=== PATIENT | female | born 1980 | race Caucasian/White ===

== ENCOUNTER 2016-04-17 10:30 | Outpatient (RCR) | payer OTHER ==
[2016-02-26 15:40] VITALS: BP 152/93
[~2016-04-17 10:30] MED LIST: ANTIVERT12.5 M1; COPAXONE 20M20 MG/M1 SQ; CYMBALTA60 M1 PO; DULOXETINE60 MG PO; GABAPENTIN100 MG PO; GILENYA0.5 MG PO; NEURONTIN300 M1 PO; PREDNISONE20 M1 PO; VITAMIN D50000 UNIT PO; ZOFRAN4 M2 PO
== END 2016-05-28 08:00 | disposition home or self-care (01) ==
LOC: OT 10:30
DX: G35 Multiple sclerosis (principal)

== ENCOUNTER 2016-04-28 15:30 | Outpatient (RCR) | payer OTHER ==
[2016-02-26 15:40] VITALS: BP 152/93
== END 2016-06-05 | disposition home or self-care (01) ==
LOC: PT
DX: R27.0 Ataxia, unspecified (principal); R53.1 Weakness; G35 Multiple sclerosis

== ENCOUNTER 2016-08-23 09:33 | Outpatient (RCR) | payer OTHER, MEDICARE ==
[~2016-08-23] VITALS: Ht 157.5 cm; Wt 96.1 kg
[2016-08-23 10:13] VITALS: BP 152/93
[2016-08-23] MEDS ORDERED: NATURE'S BLEN2000 IU PO (11:13)
[2016-08-23] MEDS ORDERED: EFFEXOR XR150 M1 PO (11:14)
[2016-08-23] MEDS ORDERED: SYNTHROID0.075 MG PO (11:14)
[2016-08-23] MEDS ORDERED: TOPAMAX25 MG PO (11:14)
[2016-08-23] MEDS ORDERED: ADDERALL 10 MG10 MG PO (11:15)
[2016-08-24 13:00] VITALS: BP 128/68
[2016-08-24 15:00] VITALS: BP 111/43
[2016-08-25 15:55] VITALS: BP 123/66
[2016-08-25 18:40] VITALS: BP 139/84
[2016-08-26 16:05] VITALS: BP 128/78
[2016-08-26 18:30] VITALS: BP 140/67
[2016-08-27 16:30] VITALS: BP 143/58
[2016-08-27 18:43] VITALS: BP 129/72
== END 2016-11-21 | disposition home or self-care (01) ==
LOC: AMSURD → EDSTATUS 09:50
DX: G35 Multiple sclerosis (principal)
CPT/HCPCS: J2930; J7050

== ENCOUNTER 2016-12-03 16:47 | Outpatient (RCR) | payer OTHER, MEDICARE ==
[~2016-12-03] VITALS: Ht 157.5 cm; Wt 89.5 kg
[~2016-12-03 16:47] MED LIST changes: +ADDERALL 10 MG10 MG PO; +EFFEXOR XR150 M1 PO; +NATURE'S BLEN2000 IU PO; +SYNTHROID0.075 MG PO; +TOPAMAX25 MG PO
[2016-12-03 17:00] VITALS: BP 125/69
[2016-12-03] MEDS ORDERED: MIXED AMPHETAMI10 M1 PO (17:39)
[2016-12-03] MEDS ORDERED: LEVOTHYROXIN0.075 MG PO (17:40)
[2016-12-03] MEDS ORDERED: ZOLPIDEM TART5 MG PO (17:42)
[2016-12-03] MEDS ORDERED: SINGULAIR 110 MG/TAB PO (17:43)
[2016-12-03] MEDS ORDERED: ALPRAZOLAM0.25 MG PO (17:43)
[2016-12-03] MEDS ORDERED: CYANOCOBAL1000 MCG/1 IM (17:44)
[2016-12-03] MEDS ORDERED: OCREVUS300 MG/10 IV (17:45)
[2016-12-03 19:20] VITALS: BP 124/72
[2016-12-03 19:55] VITALS: BP 124/77
[2016-12-04 16:44] VITALS: BP 112/82
[2016-12-04 19:04] VITALS: BP 135/80
[2016-12-05 17:20] VITALS: BP 140/72
[2016-12-05 19:38] VITALS: BP 138/83
== END 2016-12-05 19:00 | disposition home or self-care (01) ==
LOC: AMSURD 16:47
DX: G35 Multiple sclerosis (principal)
CPT/HCPCS: J1644; J2930; J7050

== ENCOUNTER 2017-01-27 18:09 | Outpatient (RCR) | payer OTHER, MEDICARE ==
[~2017-01-27] VITALS: Ht 157.5 cm; Wt 89.5 kg
[~2017-01-27 18:09] MED LIST changes: +ALPRAZOLAM0.25 MG PO; +CYANOCOBAL1000 MCG/1 IM; +LEVOTHYROXIN0.075 MG PO; +MIXED AMPHETAMI10 M1 PO; +OCREVUS300 MG/10 IV; +SINGULAIR 110 MG/TAB PO; +ZOLPIDEM TART5 MG PO
[2017-01-27 18:46] VITALS: BP 120/72
== END 2017-04-27 | disposition home or self-care (01) ==
LOC: AMSURD
DX: G35 Multiple sclerosis (principal); Z78.9 Other specified health status
CPT/HCPCS: A4301; J1644

== ENCOUNTER 2017-03-11 18:27 | Outpatient (RCR) | payer OTHER, MEDICARE ==
[~2017-03-11] VITALS: Ht 157.5 cm; Wt 89.5 kg
[2017-03-11 18:50] VITALS: BP 123/75
[2017-03-11 20:20] VITALS: BP 125/70
[2017-03-12 18:03] VITALS: BP 131/77
[2017-03-12 19:19] VITALS: BP 125/73
[2017-03-13 18:32] VITALS: BP 121/79
[2017-03-13 20:52] VITALS: BP 133/78
[2017-03-14 18:27] VITALS: BP 135/74
[2017-03-14 19:46] VITALS: BP 137/83
--- NOTE | 2017-03-14 19:50 | NUR ---
central line dressing change completed after it was noted there was clear fluid under the dressing, patient stated she had applied extra tape becasue the current dressing had lifted from her skin, sterile dressing change is completed
[2017-03-15 17:30] VITALS: BP 124/63
[2017-03-15 18:44] VITALS: BP 130/70
== END 2017-03-15 18:00 | disposition home or self-care (01) ==
LOC: AMSURD 18:27
DX: G35 Multiple sclerosis (principal)
CPT/HCPCS: A4301; J1644; J2930; J7050

== ENCOUNTER 2017-03-31 07:59 | Outpatient (RCR) | payer OTHER, MEDICARE ==
[~2017-03-31] VITALS: Ht 157.5 cm; Wt 89.5 kg
[2017-03-31 08:00] VITALS: BP 133/83
[2017-03-31 09:45] VITALS: BP 126/76
--- NOTE | 2017-03-31 10:07 | NUR ---
PORT REMAINS ACCESSED UPON PT DC. FLUSHED AND HEPLOCKED.
[2017-04-01 17:04] VITALS: BP 151/78
[2017-04-01 18:05] VITALS: BP 134/87
[2017-04-02 17:28] VITALS: BP 126/87
[2017-04-02 18:23] VITALS: BP 130/83
[2017-04-03 12:00] VITALS: BP 130/85
[2017-04-03 12:30] VITALS: BP 144/86
[2017-04-03 13:30] VITALS: BP 123/81
[2017-04-03 13:53] VITALS: BP 137/85
[2017-04-03 14:51] VITALS: BP 131/82
[2017-04-04 11:48] VITALS: BP 139/81
[2017-04-04 12:47] VITALS: BP 150/88
== END 2017-04-04 13:30 | disposition home or self-care (01) ==
LOC: AMSURD 07:59
DX: G35 Multiple sclerosis (principal)
CPT/HCPCS: J1644; J2930; J7050

== ENCOUNTER 2017-06-08 18:14 | Outpatient (RCR) | payer OTHER, MEDICARE ==
[~2017-06-08] VITALS: Ht 157.5 cm; Wt 89.5 kg
[~2017-06-08 18:14] MED LIST changes: -ADDERALL XR20 MG PO
[2017-06-08 18:17] VITALS: BP 111/72
[2017-06-08] MEDS ORDERED: ADDERALL XR20 MG PO (19:45)
[2017-06-08 20:22] VITALS: BP 121/75
[2017-06-09 16:45] VITALS: BP 135/72
[2017-06-09 18:03] VITALS: BP 126/76
--- NOTE | 2017-06-10 16:45 | NUR ---
patient arrives ambulatory for infusion of solu-medrol, central line to right upper chest is currently accessed, appears without s/s of difficulty, blood return easily obtained. iunfusion initiated, spouse at [facility].
[2017-06-10 17:10] VITALS: BP 131/78
[2017-06-10 18:08] VITALS: BP 117/86
[2017-06-11 15:30] VITALS: BP 133/69
[2017-06-12 17:03] VITALS: BP 114/63
[2017-06-12 18:31] VITALS: BP 123/80
== END 2017-06-12 20:00 | disposition home or self-care (01) ==
LOC: AMSURD 18:14
DX: G35 Multiple sclerosis (principal); Z95.828 Presence of other vascular implants and grafts
CPT/HCPCS: A4301; J1644; J2930; J7060

== ENCOUNTER → 2017-06-08 | Outpatient (CLI) | payer OTHER, MEDICARE ==
[~2017-06-08] MED LIST changes: +ADDERALL XR20 MG PO
[2017-06-08 19:47] LABS: ALBUMIN 3.7 g/dL (3.5-5.0); BUN/CREATININE RATIO 28.5 (6.0-26.0); CALCIUM 8.6 mg/dL (8.4-10.2); POTASSIUM 3.9 mmol/L (3.6-5.0); TOTAL BILIRUBIN 0.3 mg/dL (0.2-1.3); TOTAL PROTEIN 6.3 g/dL (6.3-8.2)
== END ==
LOC: LAB 18:19
PROVIDERS: Family Medicine
DX: G35 Multiple sclerosis (principal)

== ENCOUNTER → 2017-06-12 | Outpatient (CLI) | payer OTHER, MEDICARE ==
[~2017-06-12] MED LIST changes: +ADDERALL XR20 MG PO
[2017-06-12 17:03] VITALS: BP 114/63
[2017-06-13 08:25] LABS: ALBUMIN 3.5 g/dL (3.5-5.0); BUN/CREATININE RATIO 36.1 (6.0-26.0); CALCIUM 8.6 mg/dL (8.4-10.2); POTASSIUM 3.4 mmol/L (3.6-5.0); TOTAL BILIRUBIN 0.3 mg/dL (0.2-1.3); TOTAL PROTEIN 5.8 g/dL (6.3-8.2)
== END ==
LOC: LAB 17:26
PROVIDERS: Family Medicine
DX: G35 Multiple sclerosis (principal)

== ENCOUNTER 2017-12-21 15:39 | Emergency (ER) | payer OTHER, MEDICARE ==
[~2017-12-21] VITALS: Ht 157.5 cm; Wt 90.9 kg
[2017-12-21] MEDS ORDERED: PERCOCET 325 MG1 TA2 PO (16:25)
[2017-12-21] MEDS ORDERED: VALACYCLOVIR1 GM PO (16:25)
[2017-12-21 16:33] VITALS: BP 127/83
== END 2017-12-21 16:29 | disposition home or self-care (01) ==
LOC: ED 15:39
DX: B02.9 Zoster without complications (principal); G35 Multiple sclerosis; Z79.899 Other long term (current) drug therapy

== ENCOUNTER 2019-10-13 17:05 | Outpatient (RCR) | payer OTHER, MEDICARE ==
[~2019-10-13] VITALS: Ht 157.5 cm; Wt 90.9 kg
[~2019-10-13 17:05] MED LIST changes: +PERCOCET 325 MG1 TA2 PO; +VALACYCLOVIR1 GM PO
[2019-10-13 17:27] VITALS: BP 133/73
== END 2020-01-11 | disposition still patient (30) ==
LOC: AMSURD
DX: G35 Multiple sclerosis (principal)
CPT/HCPCS: J1644

== ENCOUNTER → 2020-07-12 | Outpatient (CLI) | payer OTHER, MEDICARE | LOC: MAMMO 07:42 | DX: Z12.31 Encounter for screening mammogram for malignant neoplasm of breast (principal); N64.89 Other specified disorders of breast ==

== ENCOUNTER → 2020-07-16 | Outpatient (CLI) | payer OTHER | LOC: RAD 07:00 | DX: R92.2 Inconclusive mammogram (principal) ==

== ENCOUNTER → 2020-07-23 | Outpatient (CLI) | payer OTHER | LOC: RAD 07:58 | DX: N60.82 Other benign mammary dysplasias of left breast (principal); Z98.84 Bariatric surgery status | CPT/HCPCS: 15989; 15990; A4648 ==

== ENCOUNTER → 2020-12-25 | Outpatient (CLI) | payer OTHER, MEDICARE | LOC: LAB 14:28 | DX: E55.9 Vitamin D deficiency, unspecified (principal); D50.8 Other iron deficiency anemias ==

== ENCOUNTER → 2021-01-31 | Outpatient (CLI) | payer OTHER, MEDICARE | LOC: RAD 12:00 | DX: N63.20 Unspecified lump in the left breast, unspecified quadrant (principal) ==

== ENCOUNTER → 2021-06-25 | Outpatient (CLI) | payer OTHER, MEDICARE ==
[2021-06-25 15:58] LABS: BASO # 0.02 K/mm3 (0.02-0.10); HEMATOCRIT 36.1 % (37.0-47.0); HEMOGLOBIN 11.5 g/dL (12.5-16.0); LYMPH# 0.71 K/mm3 (1.50-4.00); MEAN CELL VOLUME 87 fl (78-100); MEAN CORPUSCULAR HEMOGLOBIN 28 pg (27-31); MEAN CORPUSCULAR HGB CONC 32 g/dL (33-37); MEAN PLATELET VOLUME 9.4 fl (7.4-10.4); MONO # 0.16 K/mm3 (0.20-0.80); NEU # 6.65 K/mm3 (1.40-6.50); PLATELET COUNT 313 K/mm3 (130-400); RED BLOOD COUNT 4.17 M/mm3 (4.10-5.30); RED CELL DISTRIBUTION WIDTH 15.1 % (11.5-14.5); WHITE BLOOD COUNT 7.6 K/mm3 (4.8-10.8)
[2021-06-25 16:14] LABS: ALBUMIN 4.3 g/dL (3.5-5.0)
[2021-06-25 16:15] LABS: CALCIUM 9.2 mg/dL (8.3-10.5)
[2021-06-25 16:17] LABS: TOTAL PROTEIN 7.2 g/dL (6.4-8.3)
[2021-06-25 16:18] LABS: TOTAL BILIRUBIN 0.3 mg/dL (0.2-1.2)
[2021-06-25 17:12] LABS: ERYTHROCYTE SEDIMENTATION RATE 23 mm/hr (0-20)
== END ==
LOC: LAB 15:31
PROVIDERS: Nurse Practitioner Primary Care
DX: G35 Multiple sclerosis (principal); R05.3 Chronic cough

== ENCOUNTER 2023-04-01 08:00 | Outpatient (RCR) | payer OTHER | END 2023-04-19 | disposition home or self-care (01) | LOC: PT | DX: G35 Multiple sclerosis (principal) ==

== ENCOUNTER → 2023-09-24 | Outpatient (CLI) | payer MEDICARE, OTHER | LOC: RAD 14:20 | DX: Z12.31 Encounter for screening mammogram for malignant neoplasm of breast (principal); N63.10 Unspecified lump in the right breast, unspecified quadrant ==

== ENCOUNTER → 2023-10-06 | Outpatient (CLI) | payer MEDICARE, OTHER | LOC: RAD 07:27 | DX: N63.10 Unspecified lump in the right breast, unspecified quadrant (principal) ==